=== PATIENT | female | born 1985 | race Caucasian/White ===

== ENCOUNTER 2024-10-28 11:41 | Outpatient (REF) | payer BC, SELFPAY ==
--- NOTE | 2024-10-28 11:20 | PAPFT_PTH ---
PATIENT: Ran Farley LOC: [facility] U#:[id number] AGE/SX: 39/F ROOM: RE10/28/[address]: Silvia Goldsmith NP : 1985 BED: DIS: 10/28/2024 SPEC #: [id number] RECD: 10/28/24 12:49 STATUS: PETROS RUEDA #: [id number] GEOVANI: 10/28/24 11:[address]: Silvia Goldsmith NP DEPT: [facility] Cytology RECD BY: Frieda Saldaña ENTERED: 10/28/24 12:49 SP TYPE: PAPFT OT DR: Unknown,Unknown Tissues: 1 - CX/ENDOCX FOR PAP SMEARS Procedures: PAP THIN PREP/[facility] Screening HPV DNA PROBE Comments: [id number] (HPV 16 & 18/45)
== END 2024-10-28 11:42 | disposition home or self-care (01) ==
LOC: LBN 11:41
PROVIDERS: Visit Provider Nurse Practitioner Women's Health
DX: Z12.4 Encounter for screening for malignant neoplasm of cervix (principal)
CPT/HCPCS: 88142; 87624

== ENCOUNTER 2024-11-02 18:54 | Emergency (ER) | payer BC, SELFPAY ==
[2024-11-02 19:00] VITALS: BP 134/89; PULSE 69; RESP 18; TEMP 36.7; O2SAT 97
--- NOTE | 2024-11-02 19:41 | W.ED.GENAD ---
Discharge Plan Disposition Patient Disposition: Home Condition: Good Discharge Details Clinical Impression: Exposure to rabies Primary Care Provider: TeresaLocal ED Provider: Clement Goldsmith Home Meds and New Rx's Prescriptions: No Action lorazepam 0.5 mg tablet 0.5 mg PO QHS PRN sertraline 100 mg tablet 100 mg PO DAILY valacyclovir [Valtrex] 500 mg tablet 500 mg PO BID Qty: 6 2RF multivitamin Tablet 1 tab PO DAILY bupropion HCl 300 mg tablet extended release 24 hr 300 mg PO QAM Discharge Instructions Instructions: Rabies (DC) Additional Instructions: You were seen in the emergency department after rabies exposure. You have already been previously vaccinated against rabies. We gave you a booster of the rabies vaccination here today. You will want another shot in 3 days and you should return to the infusion clinic on Sunday. They will administer at the second booster shot at that visit. If you develop any signs of rabies or any other concerns then please return back to the emergency department. Please follow-up with your primary care doctor. Referrals: Primary Care Provider [Outside] - 1 week HPI General Date/Time Provider Initiated Documentation: 11/02/24 19:05. Related Data Home Medications ?Medication ?Instructions ?Recorded ?Confirmed sertraline 100 mg tablet 100 mg PO DAILY 08/28/24 11/02/24 valacyclovir 500 mg tablet 500 mg PO BID #6 tabs 08/28/24 11/02/24 (Valtrex) bupropion HCl 300 mg 24 hr tablet, 300 mg PO QAM 10/08/24 11/02/24 extended release multivitamin 1 tab PO DAILY 10/08/24 11/02/24 lorazepam 0.5 mg tablet 0.5 mg PO QHS PRN 10/28/24 11/02/24 Previous Rx's ?Medication ?Instructions ?Recorded valacyclovir 500 mg tablet 500 mg PO BID #6 tabs 08/28/24 (Valtrex) Allergies Allergy/AdvReac Type Severity Reaction Status Date / Time nitrofurantoin Allergy Hives Verified 11/02/24 19:08 General Stated Complaint: InsectBite TREVON: 4 Course Vital Signs Vital signs: Vital Signs Temperature 36.7 C 11/02/24 19:00 Pulse 69 11/02/24 19:00 Respiratory Rate 18 11/02/24 19:00 Blood Pressure 134/89 11/02/24 19:00 Pulse Oximetry 97 11/02/24 19:00 Temperature 36.7 C 11/02/24 19:00 Temperature Source Oral 11/02/24 19:00 Pulse 69 11/02/24 19:00 Respiratory Rate 18 11/02/24 19:00 Blood Pressure 134/89 11/02/24 19:00 Blood Pressure Position Sitting 11/02/24 19:00 Pulse Oximetry 97 11/02/24 19:00 Oxygen Delivery Method Room Air 11/02/24 19:00 Oxygen Flow Rate 0 11/02/24 19:00 Pain Level 0 11/02/24 19:00 PFSH All Active Problems (Updated 11/02/24 @ 19:44 by Clement Goldsmith MD) Exposure to rabies (Acute) HPV in female (Acute) Patient reports history of abnormal pap in 2014, followed by colposcopy, then followed by repeat pap x2 Pap done 2017 was normal and hpv - Pap done 01/30/2020 - normal and hpv - Depressive disorder (Chronic) Generalized anxiety disorder (Acute) Cystic acne (Acute) Alcoholism (Acute) Medical History HSV (herpes simplex virus) anogenital infection Infrequent outbreaks Surgical History History of incision and drainage Pilonidal cyst 08/21/2017 Family History Mother Melanoma Substance use disorder alcohol Alcohol use disorder Father Cirrhosis Substance use disorder alcohol abuse Alcohol use disorder Sister Lupus (systemic lupus erythematosus) Social History Smoking/Tobacco Use Status: Never Second Hand Exposure: No Smoking risk assessment performed?: Yes Alcohol Intake: current Alcohol Intake frequency: a few times a week Alcohol type: wine Drug use: Never Substance use type: does not use Household members: significant other 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 Sexually active: Yes Do you think of yourself as: straight/heterosexual Current gender identity: female What is your relationship status?: living with partner Panel score (0-1 are the most socially isolated patients): 1 What type of physical activity do you participate in: regular exercise Frequency: 3-4 times per week Do you feel safe in your relationship?: Yes Female Reproductive History Menstrual Age of Menarche: 12 Duration of menses: 3-5 days control method: none History History 1 Para Hx # Term Pregnancies Multiple births Hx # Pregnancies Ectopic pregnancies AB induced 1 Hx Number of Living Children AB spontaneous PAWSS Have you Been Recently Intoxicated or Drunk Within the Last 30 days?: No Have you Ever Experienced Previous Episodes of Alcohol Withdrawal?: No Have you ever Experienced Withdrawal Seizures?: No Have you ever Experienced Delirium Tremens(DT)s?: No Have you ever undergone Alcohol Rehabilitation Treatment (i.e, inpt ot outpatient treatment programs)?: No Have you ever Experienced Blackouts?: No Have you ever Combined Alcohol with other Downers within the last 90 days?: No Have you ever Combined Alcohol with any other Substance of Abuse during the last 90 days?: No Positive Blood Alcohol level on Presentation? [PCS.BAL]: No Evidence of Increased Autonomic Activity (i.e. HR>120, tremor, sweating, agitation, nausea)?: No Result: 0
[2024-11-02 20:05] VITALS: RESP 16
[2024-11-02] MEDS: Rabies vaccine (PCEC)/PF 2.5 UNITS/ML VIAL IM (20:05)
== END 2024-11-02 20:04 | disposition home or self-care (01) ==
PROVIDERS: Emergency Provider Student in an Organized Health Care Education/Training Program
DX: Z20.3 Contact with and (suspected) exposure to rabies (principal)
CPT/HCPCS: 99283 ×2; 90471; 90675

== ENCOUNTER 2024-11-05 13:41 | Outpatient (RCR) | payer BC, SELFPAY ==
[2024-11-05] MEDS: Rabies vaccine (PCEC)/PF 2.5 UNITS/ML VIAL (14:06)
== END 2024-11-11 23:59 | disposition home or self-care (01) ==
LOC: INF 13:41
PROVIDERS: Visit Provider Student in an Organized Health Care Education/Training Program
DX: Z20.3 Contact with and (suspected) exposure to rabies (principal); Z29.14 Encounter for prophylactic rabies immune globulin
CPT/HCPCS: 96372; 90675